=== PATIENT | female | born 1970 | race Caucasian/White ===

== ENCOUNTER 2017-09-04 18:34 | Emergency (ER) | payer OTHER ==
[2017-09-04] MEDS: KETOROLAC 60 MG INJ IM (23:07)
[2017-09-04] MEDS: HYDROCODONE/APAP (10/325) TAB PO (23:14)
== END 2017-09-05 02:37 | disposition home or self-care (01) ==
LOC: FTE 18:34
DX: M51.36 Other intervertebral disc degeneration, lumbar region (principal); M79.605 Pain in left leg
CPT/HCPCS: 72131; 81025; 99284-25

== ENCOUNTER 2018-02-04 22:09 | Emergency (ER) | payer OTHER ==
[2018-02-05] MEDS: KETOROLAC 60 MG INJ IM (01:24)
[2018-02-05] MEDS: LORAZEPAM 1 MG TAB PO (01:24)
== END 2018-02-05 02:42 | disposition home or self-care (01) ==
LOC: FTE 22:09
DX: M54.41 Lumbago with sciatica, right side (principal)
CPT/HCPCS: 76536; 81025; 96372; 99285-25